=== PATIENT | male | born 2000 | race African-American/Black ===

== ENCOUNTER 2021-03-01 15:02 | Emergency (ER) | payer MEDICAID, SELFPAY ==
[2021-03-01 15:22] VITALS: BP 158/93; PULSE 83; RESP 16; TEMP 36.3; O2SAT 97; BMI 38.2
--- NOTE | 2021-03-01 15:24 | ED.DENTAL ---
HPI - Dental/Oral General Chief complaint: Dental/Oral Stated complaint: Dental pain Time Seen by Provider: 03/01/21 15:24 Source: patient Mode of arrival: ambulatory Limitations: no limitations History of Present Illness HPI Narrative: 20 y/o male presenting with 1 week of bilateral lower rear dental pain. He thinks his wisdom tooth is coming in the left lower side and in the right rear side there is a rotting tooth with tender and inflamed gums. He reports left sided facial swelling as well. No fever, chills, trismus. He is having a hard time sleeping because of the pain. He has not been to a denist in several years. He called emergency dentists and made an appointment for Thursday. He states the pain is too severe to wait until Thursday to be evaluated. MD Complaint: tooth pain Teeth map: 1. tooth with caries, gingival swelling and tenderness 2. 3rd molar starting to protrude from gums, partially exposed Onset (ago): week(s) (1) Duration: constant Severity: severe Severity scale (1-10): 8 Relieving factors: nothing Exacerbating factors: chewing, cold and heat Context: history of dental caries and poor dental care Associated symptoms: gum swelling Treatment prior to arrival: none Related Data Previous Rx's Medication Instructions Recorded hydrocodone-acetaminophen 1 tab PO Q8H PRN #7 tab 03/01/21 ibuprofen 800 mg PO Q8H #20 tab 03/01/21 penicillin V potassium 500 mg PO TID 7 Days #21 tab 03/01/21 Allergies Allergy/AdvReac Type Severity Reaction Status Date / Time clarithromycin [From Biaxin] Allergy Severe HIVES Unverified 05/10/20 17:00 digoxin Allergy Unknown Verified 01/12/17 00:00 Biaxin Allergy Unknown rash Uncoded 12/01/16 00:00 Review of Systems Review of Systems: Constitutional: No Fever, No Chills ENT/Mouth: No sore throat, No Rhinorrhea, No Swallowing Difficulty, +dental pain Eyes: No Eye Pain, No Swelling, No Redness Cardiovascular: No Chest Pain, No SOB Respiratory: No Cough, No Sputum, Gastrointestinal: No Nausea, No Vomiting Neuro: No Dizziness, + Headache Heme/Lymph: No Lymphadenopathy PMFSH Past Medical History Attestation statement: The following information was validated with the patient. Medical History No known health problems Social History Social History Advance Directives: No Advance Directives Information Provided: Yes Physical Exam Vital Signs: Vital Signs: Last Vital Signs Temp 97.4 F 03/01/21 15:22 Pulse 83 03/01/21 15:22 Resp 16 03/01/21 15:22 BP 158/93 H 03/01/21 15:22 Pulse Ox 97 03/01/21 15:22 Body Mass Index 38.2 Const: General: cooperative, healthy appearing, comfortable and no acute distress Orientation/consciousness: patient oriented x3 HENMT: Head: Yes normal to inspection, Yes normocephalic and Yes atraumatic Ears: hearing grossly normal bilaterally General nose exam: Normal external nose present Face and sinus: Yes other (mild left sided facial swelling over left mandible ) Mouth: Normal oral and palatal mucosa present, lip normal and tongue normal Teeth and gingiva: caries and gingiva abnormal edematous, with purulent discharge and tender Teeth image: 1. diseased tooth with associated gingival swelling, central area of fluctuance and small amount of pus draining 2. partially exposed 3rd molar Throat: Yes posterior oropharynx normal, Yes tonsils normal and Yes uvula midline Eyes: General: appearance normal, both eyes and all related structures Neck: Neck: Yes normal visual inspection and Yes no lymphadenopathy Chest: Chest palpation & inspection: normal inspection of the chest Resp: Effort & Inspection: normal respiratory effort and able to speak in complete sentences Skin: General skin exam: no rashes or lesions noted Neuro: General: patient oriented x3 Extrem: General: Yes normal to inspection Psych: Appearance: grossly normal Mental Status: mental status grossly normal Speech and movement: Normal speech and movement present Course Course Course Narrative: 20 y/o male presenting with 1 week of bilateral lower tooth pain. Right lower side is consistent with infection, spontaneously draining without facial swelling. No fevers or trisumus. No tachycardia and he is tolerating PO. He has a dentist appointment early next week. Will start antibiotics, NSAID and PRN [place] for severe pain. He was counseled on management and warning signs to prompt urgent re-evaluation. Patient is stable for discharge. MDM - Dental/Oral Differential Diagnosis Differential diagnosis: Likely gingival abscess, dental caries, toothache, dental abscess, fracture of tooth and aphthous ulcer Critical Care Time Critical Care Time Critical Care Time: No Discharge Plan Discharge Clinical Impression: Toothache, Dental caries Patient Disposition: Home, Self-Care Instructions: Dental Abscess (ED), Toothache (ED) Additional Instructions: Take the prescribed medications as directed Follow up with your dentist as scheduled on Thursday Ice your face several times per day Prescriptions: New penicillin V potassium 500 mg tablet 500 mg PO TID 7 Days Qty: 21 RF: 0 ibuprofen 800 mg tablet 800 mg PO Q8H Qty: 20 RF: 0 hydrocodone-acetaminophen 5-325 mg tablet 1 tab PO Q8H PRN (Reason: pain) Qty: 7 RF: 0 Discharge Date/Time: 03/01/21 15:52
== END 2021-03-01 15:52 | disposition home or self-care (01) ==
PROVIDERS: Emergency Provider Emergency Medicine
DX: K02.9 Dental caries, unspecified (principal)
CPT/HCPCS: 99283

== ENCOUNTER 2021-08-10 23:38 | Emergency (ER) | payer MEDICAID, SELFPAY ==
--- NOTE | ~2021-08-10 | CT_ITS ---
EXAMINATION: CT ABDOMEN AND PELVIS WITH CONTRAST CLINICAL INFORMATION: Right lower quadrant pain. Rule out appendicitis. COMPARISON: None TECHNIQUE: Multidetector volumetric images were obtained from the superior aspect of the liver through the pubic symphysis following administration 85 mL of Omnipaque 350 intravenous contrast. Sagittal and coronal reformatted images were obtained on the technologist's workstation. Oral contrast: No This CT examination was performed using dose optimization techniques as appropriate, variously including the following: *Automated exposure control *Adjustment of mA and/or kV according to patient size (this includes techniques or standardized protocols for targeted exams where dose is matched to indication/reason for exam; i.e. extremities or head) *Use of iterative reconstruction technique DLP: 1022 mGy-cm FINDINGS: LUNG BASES: The visualized lung bases are unremarkable. LIVER, GALLBLADDER, AND BILIARY TREE: The liver is normal in size, shape, and attenuation. No focal hepatic lesion or biliary ductal dilatation is present. The gallbladder is contracted with no evidence of radiopaque gallstones, gallbladder wall thickening, or obvious pericholecystic inflammatory changes. PANCREAS: Unremarkable. SPLEEN: Unremarkable. ADRENAL GLANDS: Unremarkable. KIDNEYS AND URETERS: The kidneys are normal in size, shape, and attenuation. No hydronephrosis, hydroureter, or calculi seen. No perinephric stranding. Right renal simple cysts. No follow-up imaging recommended. BLADDER: Unremarkable. GASTROINTESTINAL TRACT: The small and large bowel are unremarkable. The appendix is unremarkable. ABDOMINAL WALL: No significant hernia is appreciated. LYMPH NODES: Normal. VASCULAR: Unremarkable. PELVIC VISCERA: The prostate and seminal vesicles are unremarkable. OSSEOUS STRUCTURES: No acute or suspicious osseous abnormality. CT/CT abdomen pelvis w con IMPRESSION: No acute findings in the abdomen or pelvis. No inflammatory changes. Normal appendix. Fleischner guidelines were followed.
[2021-08-10 23:44] VITALS: BP 153/86; PULSE 88; RESP 16; TEMP 37.1; O2SAT 98; BMI 40.1
[2021-08-11 00:04] LABS: MANUAL DIFF FLAG NO
[2021-08-11 00:10] LABS: Basophils Percent Auto 0.5 % (0-2); Eosinophils Absolute Auto 0.2 X10*3/uL (0.0-0.4); Eosinophils Percent Auto 2.8 % (0-4); Hematocrit 47.6 % (42.0-52.0); Hemoglobin 15.7 g/dl (14.0-18.0); Imm Gran Abs Auto 0.01 X10*3/uL (0.00-0.03); Imm Gran Pct Auto 0.2 % (0.0-0.4); Lymphocytes Absolute Auto 2.9 X10*3/uL (1.2-4.9); Lymphocytes Percent Auto 47.8 % (20-40); Mean Corpuscular Hemoglobin 31.2 pg (27.0-33.0); Mean Corpuscular Volume 94.4 fL (80.0-98.0); Mean Platelet Volume 10.9 fL (9.4-12.4); Monocytes Absolute Auto 0.4 X10*3/uL (0.1-1.2); Neutrophils Absolute Auto 2.5 x10*3/uL (2.0-8.3); Neutrophils Percent Auto 41.7 % (45-73); Platelet Count 232 X10*3/uL (160-400); Red Blood Count 5.04 X10*6/uL (4.60-5.80)
[2021-08-11 00:11] LABS: Appearance Urine CLEAR; Color Urine YELLOW; Glucose Urine UA NEG (NEG); Leukocyte Esterase Urine NEG (NEG); Nitrite Urine NEG (NEG); Urine Blood NEG (NEG); Urine Ketones NEG (NEG); Urine Protein NEG (NEG-TRACE)
[2021-08-11 01:54] LABS: Alanine Aminotransferase 50 U/L (0-40); Albumin Level 4.5 g/dL (3.5-5.0); Alkaline Phosphatase 86 U/L (39-117); Anion Gap 15 (12-20); Aspartate Amino Transferase 32 U/L (5-37); Bilirubin Total 0.4 mg/dL (0.0-1.0); Blood Urea Nitrogen 10 mg/dL (9-16); Calcium 9.6 mg/dL (8.4-10.2); Carbon Dioxide 23 mmol/L (22-29); Chloride 105 mmol/L (96-108); Creatinine Clr Calc Pharmacy 200.4; Estimated Glomerular Filt Rate > 60; Glucose Random 106 mg/dL (60-115); Lipase 38 U/L (8-78); Potassium 3.6 mmol/L (3.3-5.1); Sodium 139 mmol/L (135-145); Total Protein 7.7 g/dL (6.5-8.0)
[2021-08-11 03:58] VITALS: BP 140/70; PULSE 75; RESP 16; TEMP 36.9; O2SAT 97
--- NOTE | 2021-08-11 04:56 | ED.ABDPAIN ---
HPI - Abdominal Pain General Chief Complaint: Abdominal Pain Stated Complaint: Abd pain Time Seen by Provider: 08/11/21 04:49 Source: patient Mode of arrival: ambulatory Limitations: no limitations History of Present Illness HPI narrative: 20-year-old male who presents emergency department for evaluation of abdominal pain times 2-3 days. Patient states that he has been having a pressure-like sensation in his abdomen. He points to his epigastric area when asked to localize the pain. The pain is constant. The pain is 8/10 at its worst. States the pain got worse prior to coming to the emergency department. He denied nausea, vomiting, fever, chills, frequency, urgency or dysuria. States that he had a normal bowel movement today. States that he took ibuprofen 800 mg without any relief his pain. He states that this is 1st episode of this type of pain. Related Data Previous Rx's Medication Instructions Recorded hydrocodone 5 mg-acetaminophen 325 1 tab PO Q8H PRN #7 tab 03/01/21 mg tablet ibuprofen 800 mg tablet 800 mg PO Q8H #20 tab 03/01/21 penicillin V potassium 500 mg 500 mg PO TID 7 Days #21 tab 03/01/21 tablet Allergies Allergy/AdvReac Type Severity Reaction Status Date / Time clarithromycin [From Biaxin] Allergy Severe HIVES Verified 08/11/21 05:18 digoxin Allergy Unknown Unknown Verified 08/11/21 05:18 Biaxin Allergy Unknown rash Uncoded 08/11/21 05:18 Review of Systems Review of Systems Yes all other systems are reviewed and are negative Physical Exam Vital Signs: Vital Signs: Last Vital Signs Temp 98.4 F 08/11/21 03:58 Pulse 75 08/11/21 03:58 Resp 16 08/11/21 03:58 BP 140/70 H 08/11/21 03:58 Pulse Ox 97 08/11/21 03:58 BMI result Body Mass Index 40.1 Const: General: cooperative and no acute distress Orientation/consciousness: oriented to person and oriented to place Limitations: no limitations HENMT: Head: Yes normal to inspection, Yes normocephalic and Yes atraumatic Ears: external ears normal General nose exam: Normal external nose present Face and sinus: Yes normal facial exam Mouth: Normal oral and palatal mucosa present Throat: Yes posterior oropharynx normal Eyes: General: appearance normal, both eyes and all related structures Pupils: Equal, round and reactive pupils present Neck: Neck: Yes normal visual inspection, Yes no lymphadenopathy, Yes trachea midline and Yes supple Chest: Chest palpation & inspection: normal inspection of the chest and normal palpation of entire chest wall Resp: Effort & Inspection: normal respiratory effort and able to speak in complete sentences Auscultation: clear to auscultation bilaterally Cardio: Rate: regular rate Rhythm: regular rhythm Heart sounds: S1 normal heart sound present, S2 normal heart sound present and no murmurs GI: Inspection: Yes obesity Palpation (GI): Soft to palpation, Tenderness to palpation present (GI) in the RLQ (Moderate) and no guarding Auscultation: normal bowel sounds : General: Yes no CVA tenderness Back/Spine/Pelvis: Back: no CVA tenderness Skin: General skin exam: no rashes or lesions noted Neuro: General: oriented to person and oriented to place Cranial nerves: Yes CN's II-XII intact bilaterally and Yes Equal, round and reactive pupils present Cognition (Neuro): normal cognition Motor exam (neuro): 5/5 motor strength present throughout Extrem: General: Yes normal to inspection Psych: Appearance: grossly normal Speech and movement: Normal speech and movement present Affect: normal affect Attitude: cooperative Thought process: Normal thought process present Thought content: Normal thought content present Course Course Course Narrative: 20-year-old male who presents emergency department for evaluation of abdominal pain for 2-3 days. The patient described a pressure-like sensation in his epigastric area. Patient's vital signs were unremarkable except for an elevated blood pressure of 153/86. The patient is still examination revealed moderate right lower quadrant tenderness. I am concerned the patient may have appendicitis. Patient had a CBC, CMP urinalysis which were unremarkable. Lipase was not elevated. I did order a CT scan of the abdomen pelvis with IV contrast to evaluate him for possible appendicitis. He was also ordered to get Toradol 15 mg IV, Zofran 4 mg IV and normal saline IV x1 L. 0646: The CT scan of the patient's abdomen pelvis with IV contrast did not reveal a clear etiology for the patient's pain. The patient's appendix was visualized by the radiologist and there were no inflammatory changes noted. The patient did feel better after the above treatment. The patient's presentation is most likely consistent with gastritis however I do not have a clear cause for his right lower quadrant pain I did discuss this with him. The patient will be started on omeprazole 20 mg once a day for 1 month. He is advised to take Tylenol and ibuprofen for his pain. I told if his pain got worse over the next 24 hours and he should return to the emergency department for re-evaluation. MDM - Abdominal Pain Lab Data Result diagrams: 08/10/21 23:51 08/11/21 01:19 Labs: Lab Results 08/10/21 08/10/21 08/11/21 Range/Units 23:51 23:51 01:19 WBC 6.0 (4.8-10.8) X10*3/uL RBC 5.04 (4.60-5.80) X10*6/uL Hgb 15.7 (14.0-18.0) g/dl Hct 47.6 (42.0-52.0) % MCV 94.4 (80.0-98.0) fL MCH 31.2 (27.0-33.0) pg MCHC 33.0 (31.0-36.0) g/dl RDW 12.0 (11.0-16.0) % Plt Count 232 (160-400) X10*3/uL MPV 10.9 (9.4-12.4) fL Immature Gran % (Auto) 0.2 (0.0-0.4) % Neut % (Auto) 41.7 L (45-73) % Lymph % (Auto) 47.8 H (20-40) % [place] % (Auto) 7.0 (2-11) % Eos % (Auto) 2.8 (0-4) % Baso % (Auto) 0.5 (0-2) % Lymph # (Auto) 2.9 (1.2-4.9) X10*3/uL [place] # (Auto) 0.4 (0.1-1.2) X10*3/uL Eos # (Auto) 0.2 (0.0-0.4) X10*3/uL Baso # (Auto) 0.0 (0.0-0.2) X10*3/uL Abs Immat Gran (auto) 0.01 (0.00-0.03) X10*3/uL Absolute Neuts (auto) 2.5 (2.0-8.3) x10*3/uL Absolute Nucleated RBC 0.000 (0.0-0.012) X10*3/uL Nucleated RBC % (auto) 0.0 (0.0-0.2) /100WBC Sodium 139 (135-145) mmol/L Potassium 3.6 (3.3-5.1) mmol/L Chloride 105 (96-108) mmol/L Carbon Dioxide 23 (22-29) mmol/L Anion Gap 15 (12-20) BUN 10 (9-16) mg/dL Creatinine 0.78 (0.5-1.4) mg/dL Estim Creat Clear Calc 200.4 Estimated GFR > 60 Random Glucose 106 (60-115) mg/dL Calcium 9.6 (8.4-10.2) mg/dL Total Bilirubin 0.4 (0.0-1.0) mg/dL AST 32 (5-37) U/L ALT 50 H (0-40) U/L Alkaline Phosphatase 86 (39-117) U/L Total Protein 7.7 (6.5-8.0) g/dL Albumin 4.5 (3.5-5.0) g/dL Lipase 38 (8-78) U/L Urine Color YELLOW Urine Appearance CLEAR Urine pH 6.0 (5.0-8.0) Ur Specific [place] 1.020 (1.005-1.025) Urine Protein NEG (NEG-TRACE) MG/DL Urine Glucose (UA) NEG (NEG) MG/DL Urine Ketones NEG (NEG) MG/DL Urine Blood NEG (NEG) Urine Nitrite NEG (NEG) Ur Leukocyte Esterase NEG (NEG) Discharge Plan Discharge Clinical Impression: Abdominal pain, Gastritis Patient Disposition: Home, Self-Care Instructions: Gastritis (ED) Additional Instructions: Your laboratory evaluation was normal which is reassuring. The CT scan of your abdomen pelvis with IV contrast did not reveal a clear cause for the pain in the right lower quadrant of your abdomen. The radiologist was able to see your appendix and your appendix appeared normal which is reassuring. Sometimes however early on in appendicitis all your test can be normal and you still may have appendicitis. Therefore if you are not better in 24 hours she should return to the emergency department so that we can re-evaluate you for possible appendicitis. The pain in the middle of your stomach is most likely caused by inflammation of your stomach (gastritis). Take Prilosec (omeprazole) 20 mg once a day for 1 month. This shots of the acid production your stomach and much stomach heal. Take ibuprofen 200 mg pills, 3 pills every 6 hours as needed for pain. Take Tylenol (acetaminophen) 500 mg pills, 2 pills every 4 to 6 hours as needed for pain. Follow-up with your doctor in 2 days. Please return to the emergency department if your symptoms get worse or if you develop any symptoms that are concerning to you. Prescriptions: No Action penicillin V potassium 500 mg tablet 500 mg PO TID 7 Days Qty: 21 RF: 0 ibuprofen 800 mg tablet 800 mg PO Q8H Qty: 20 RF: 0 hydrocodone-acetaminophen 5-325 mg tablet 1 tab PO Q8H PRN (Reason: pain) Qty: 7 RF: 0 PMFSH Past Medical History PMFSH Narrative: Past medical history: None. Past surgical history: None. Social history denies tobacco use. He occasionally drinks alcohol. He denies drug use. Medical History No known health problems Social History Social History Advance Directives: No
[2021-08-11] MEDS: iohexoL 350 MG/ML 100 ML INFUS..BTL IV (05:17)
[2021-08-11] MEDS: ondansetron HCL 4 MG/2 ML VIAL IVPUSH (05:18)
[2021-08-11] MEDS: Ketorolac Tromethamine 30 MG/ML VIAL 15 MG IVPUSH (05:18)
[2021-08-11] MEDS: 0.9 % Sodium Chloride 1,000 ML 999 ML IV (05:19)
--- NOTE | 2021-08-11 05:23 | PC.NURSE ---
complaining of left lower quadrant pain, ambulated to CT, given meds per MAR, waiting for results of CT scan will continue to monitor
[2021-08-11 07:32] VITALS: BP 146/99; PULSE 68; RESP 16; O2SAT 99
== END 2021-08-11 07:33 | disposition home or self-care (01) ==
PROVIDERS: Emergency Provider Emergency Medicine Emergency Medical Services
DX: K29.70 Gastritis, unspecified, without bleeding (principal); R10.31 Right lower quadrant pain
CPT/HCPCS: 36415; 74177; 80053; 81003; 83690; 85025; 96361; 96374; 96375; 99284; J1885; J2405; Q9967

== ENCOUNTER 2021-08-21 08:56 | Outpatient (REF) | payer MEDICAID, SELFPAY | END 2021-08-21 08:57 | disposition home or self-care (01) | LOC: HO.LAB 08:56 | PROVIDERS: Visit Provider Internal Medicine | DX: Z20.822 Contact with and (suspected) exposure to COVID-19 (principal) | CPT/HCPCS: C9803; U0003; U0005 ==

== ENCOUNTER 2023-07-20 09:48 | Emergency (ER) | payer OTHER, SELFPAY ==
[2023-07-20 10:20] VITALS: BP 153/68; PULSE 105; RESP 22; TEMP 37.2; O2SAT 97; BMI 50.5
[2023-07-20 11:12] LABS: IDNOW Serial# 9DB6401D; Influenza A Negative (Negative); Influenza B2 Negative (Negative)
[2023-07-20 11:12] LABS: COVID-19 Test Negative (Negative); IDNOW Serial# 08D9AD1C; IDNOW Serial# BCCEAD1C; Strep A Nucleic Acid Negative (Negative)
--- NOTE | 2023-07-20 11:50 | ED.GENADULT ---
HPI - General Adult General Chief complaint: Upper Respiratory Symptoms Stated complaint: Fever/Sore throat Time Seen by Provider: 07/20/23 10:44 Source: patient Mode of arrival: ambulatory Limitations: no limitations History of Present Illness HPI narrative: 22-year-old male history of obesity presenting to the emergency department for evaluations of fatigue, malaise, myalgias, sore throat, dry cough, redness to right eye, vomitingalthough this has been going on for the past 5 days, not improving. Multiple recent sick contact w/ similar sx. Reports he just feels overall unwell. Denies chest pain, shortness of breath, diarrhea, abdominal pain, headache, vision changes, dizziness or weakness. Related Data Previous Rx's Medication Instructions Recorded hydrocodone 5 mg-acetaminophen 325 1 tab PO Q8H PRN pain #7 tabs 03/01/21 mg tablet ibuprofen 800 mg tablet 800 mg PO Q8H #20 tabs 03/01/21 penicillin V potassium 500 mg 500 mg PO TID 7 days #21 tabs 03/01/21 tablet sulfacetamide sodium 10 % eye drops 2 drp ophthalmic (eye) Q4H 7 days 07/20/23 #15 mL Allergies Allergy/AdvReac Type Severity Reaction Status Date / Time clarithromycin [From Biaxin] Allergy Severe HIVES Verified 08/11/21 05:18 digoxin Allergy Unknown Unknown Verified 08/11/21 05:18 Biaxin Allergy Unknown rash Uncoded 08/11/21 05:18 Review of Systems Review of Systems: Constitutional : No Weight loss, No Fever, No Chills, No Fatigue, No Malaise ENT/Mouth : + sore throat, No Rhinorrhea Eyes: No Eye Pain, No Swelling, + Redness Cardiovascular : No Chest Pain, No SOB, No Dyspnea on Exertion, No Orthopnea, No Edema, No Palpitations Respiratory : + Cough, No Sputum, No Wheezing Gastrointestinal : No Nausea, + Vomiting, No Diarrhea, No Constipation, No abdominal Pain, No Hematochezia, No Melena Genitourinary : No Dysuria, No Urinary Frequency, No Hematuria, Musculoskeletal : No joint pain, No Myalgias, No Joint Swelling Skin : No Skin Lesions, No rash Neuro : No Weakness, No Numbness, No Dizziness, No Headache Psych : No Anxiety/Panic, No Depression All other systems reviewed and are negative Yes all other systems are reviewed and are negative PMFSH Past Medical History Attestation statement: The following information was validated with the patient. Source: old records reviewed and nursing notes reviewed Medical History No known health problems Social History Advance Directives: No Physical Exam ED Vital Signs: Vital Signs - 24 hr 07/20/23 10:20 Temperature 98.9 F Pulse Rate 105 H Respiratory Rate 22 H Blood Pressure 153/68 H Pulse Oximetry 97 Oxygen Delivery Method Room Air BMI result Body Mass Index 50.5 Patient slightly tachycardic likely secondary to viral illness Appearance: Alert.? Oriented X3.? No acute distress.? Head: Normocephalic, atraumatic, no step-offs or deformities Eyes: Pupils equal, round and reactive to light.? Extraocular movements intact pain-free + patient's eyes b/l R>L with conjunctival injection. No orbital cellulitis noted ENT: Pharynx normal.? Uvula midline. No exudate or abscesses noted. Speaking in full sentences controlling secretions well Neck: Normal inspection.? Neck supple.? CVS: Normal heart rate and rhythm.? Pulses normal.? Respiratory: No respiratory distress.? Breath sounds normal.? Abdomen: Soft and nontender.? Skin: Skin warm and dry.? Normal skin color.? Normal skin turgor.? Extremities: No lower extremity edema.? No calf ttp. 5/5 strength to bilateral upper and lower extremities Neuro: Oriented X 3.? No motor deficit.? No sensory deficit. CN 2-12 intact Course Reevaluation(s) Reevaluation #1: Patient negative for strep, flu and COVID. This is likely viral illness with conjunctivitis. Will discharge home with Bleph-10 as patient has a erythromycin allergy. Educated patient on diagnosis and treatment plan, answered all question, patient verbalizes understanding. At this time patient will be discharged home, advised to return with new or worsening symptoms. Educated on worrisome signs and symptoms and when to return. At this time I feel comfortable discharge home. Time: 11:53 Medical Decision Making Medical Decision Making [facility] Narrative: 1150 22-year-old male presents with cough, sore throat, fatigue, malaise, vomiting and red eye x5 days Physical exam Pupils equal, round and reactive to light.? Extraocular movements intact pain-free + patient's eyes b/l R>L with conjunctival injection. No orbital cellulitis noted ENT: Pharynx normal.? Uvula midline. No exudate or abscesses noted. Speaking in full sentences controlling secretions well This is likely viral illness with subsequent conjunctivitis. Unlikely pulmonary embolism, pneumonia, bacterial pharyngitis, peritonsillar retropharyngeal abscess, epiglottitis, threat to airway, pneumothorax. Right eye likely conjunctivitis unlikely wet macular degeneration, acute closed angle glaucoma. Vomiting likely secondary to virus, no abdominal tenderness, unlikely acute abdomen, appendicitis, diverticulitis, cholecystitis, pancreatitis Plan viral testing Differential Diagnosis Differential Diagnoses: The differential diagnosis associated with the presentation includes This is likely viral illness with subsequent conjunctivitis. Unlikely pulmonary embolism, pneumonia, bacterial pharyngitis, peritonsillar retropharyngeal abscess, epiglottitis, threat to airway, pneumothorax. Right eye likely conjunctivitis unlikely wet macular degeneration, acute closed angle glaucoma, Vomiting likely secondary to virus, no abdominal tenderness, unlikely acute abdomen, appendicitis, diverticulitis, cholecystitis, pancreatitis Admission/Observation Consideration of admission/observation: Escalation of care including admission/observation considered Unlikely Lab Data MDM Lab Attestation statement: I reviewed the patient's lab results. Labs: Lab Results 07/20/23 07/20/23 Range/Units 10:39 10:40 COVID-19 (JUAN) Negative (Negative) COVID-19 Clin Com See Note Influenza Type A (MICHAEL) Negative (Negative) Influenza Type B (MICHAEL) Negative (Negative) Influenza A & B Note See Note S. pyogenes GrpA MICHAEL Negative (Negative) Tests considered The following testing was considered but not selected: X-ray considered however lungs clear, not hypoxic, unlikely pulmonary embolism, pneumonia. Critical Care Time Critical Care Time Critical Care Time: No Discharge Plan Discharge Clinical Impression: Viral infection, Conjunctivitis Patient Disposition: Home, Self-Care Instructions: Viral Syndrome (ED), Conjunctivitis (ED) Additional Instructions: Take your medications as prescribed. If you were prescribed antibiotics today, it is important that you take your medication to their entirety, do not skip any doses, do not finish them early. Follow-up with your primary care provider this week. Return to the emergency department with new or worsening symptoms. Such as fevers, chills, chest pain, shortness of breath, nausea, vomiting, dizziness, headache, vision changes, lethargy In case of emergency call 911 Use salt water gargles for sore throat Prescriptions: New sulfacetamide sodium 10 % drops 2 drp ophthalmic (eye) Q4H 7 Days Qty: 15 0RF No Action penicillin V potassium 500 mg tablet 500 mg PO TID 7 Days Qty: 21 0RF ibuprofen 800 mg tablet 800 mg PO Q8H Qty: 20 0RF hydrocodone-acetaminophen 5-325 mg tablet 1 tab PO Q8H PRN (Reason: pain) Qty: 7 0RF Rx Instructions: partial fill ok Referrals: Physician,None [Primary Care Provider] - 2 days Stand Alone Forms: Work/School Release
== END 2023-07-20 12:09 | disposition home or self-care (01) ==
PROVIDERS: Emergency Provider Emergency Medicine
DX: B34.9 Viral infection, unspecified (principal); H10.9 Unspecified conjunctivitis; Z11.52 Encounter for screening for COVID-19
CPT/HCPCS: 87502; 87635; 87651; 99282; 99283

== ENCOUNTER 2024-01-21 07:38 | Emergency (ER) | payer SELFPAY ==
[2024-01-21 07:44] VITALS: BP 168/110; PULSE 110; RESP 20; TEMP 36.2; O2SAT 97; BMI 53.8
[2024-01-21 08:09] LABS: IDNOW Serial# 58CA691E; Strep A Nucleic Acid Negative (Negative)
[2024-01-21] MEDS: methylPREDNISolone Sod Succ 125 MG/2 ML VIAL IVPUSH (08:14)
--- NOTE | 2024-01-21 08:16 | ED_ITS ---
HPI - SOB/Dyspnea General Chief Complaint: Dyspnea Stated Complaint: diff breathing Time Seen by Provider: 01/21/24 07:52 Source: patient Mode of arrival: ambulatory Limitations: no limitations History of Present Illness ED Provider: ILANA HPI Narrative: 23 yo male with no sig PMH notes last night started to feel swelling in the throat no fevers. He denies known exposures or prior swelling. Woke up choking on ball in his throat. He states he feels like there is a ball in the back of his throat. He has never had this before. MD elicited complaint: shortness of breath Pertinent past history: asthma Onset (ago): day(s) (in the middle of the night) Timing: constant Severity: moderate Exacerbating factors: lying flat and coughing Relieving factors: nothing Associated symptoms: other (feels ball in the throat) Treatment prior to arrival: none Related Data Previous Rx's ?Medication ?Instructions ?Recorded hydrocodone 5 mg-acetaminophen 325 1 tab PO Q8H PRN pain #7 tabs 03/01/21 mg tablet ibuprofen 800 mg tablet 800 mg PO Q8H #20 tabs 03/01/21 penicillin V potassium 500 mg 500 mg PO TID 7 days #21 tabs 03/01/21 tablet sulfacetamide sodium 10 % eye drops 2 drp ophthalmic (eye) Q4H 7 days 07/20/23 #15 mL cetirizine 10 mg tablet 10 mg PO DAILY #10 tabs 01/21/24 epinephrine 0.3 mg/0.3 mL 0.3 mg (0.3 mL) IM Q10M PRN 01/21/24 injection, auto-injector anaphylaxis #2 ea prednisone 20 mg tablet 40 mg (2 x 20 mg) PO DAILY 5 days 01/21/24 #10 tabs Allergies Allergy/AdvReac Type Severity Reaction Status Date / Time clarithromycin [From Biaxin] Allergy Severe HIVES Verified 01/21/24 07:47 digoxin Allergy Unknown Unknown Verified 01/21/24 07:47 Biaxin Allergy Unknown rash Uncoded 01/21/24 07:47 Review of Systems Review of Systems: Constitutional : No Fever, No Chills ENT/Mouth : No sore throat, No Rhinorrhea, No Swallowing Difficulty Eyes: No Eye Pain, No Swelling, No Redness Cardiovascular : No Chest Pain, positive SOB, No Orthopnea, no Edema Respiratory : No Cough, No Sputum, No Wheezing, positive dyspnea Gastrointestinal : No Nausea, No Vomiting, No Diarrhea, No abdominal Pain, No Hematochezia, No Melena Genitourinary : No Dysuria, No Urinary Frequency, No Hematuria Musculoskeletal : No joint pain, No Myalgias Skin : No Skin Lesions, No rash Neuro : No Weakness, No Numbness, No Dizziness, No Headache Psych : No Anxiety/Panic, No Depression All other systems reviewed and are negative [facility] Past Medical History Attestation statement: The following information was validated with the patient. Source: old records reviewed Medical History No known health problems Social History Social History (Updated 01/21/24 @ 08:24 by Rosa Calle DO) Alcohol intake: current Alcohol intake frequency: holidays/special occasions only Patient Tobacco Use Status: Current everyday Tobacco user Tobacco use type: Smokeless Tobacco Smoked in Last 30 Days: Yes Use of substances other than those prescribed or required for medical reasons: No Advance Directives: No Do you have a plan to hurt others: No Plan Physical Exam Vital Signs: Vital Signs: Last Vital Signs Temp 97.2 F 01/21/24 07:44 Pulse 92 01/21/24 09:14 Resp 20 01/21/24 09:13 BP 142/82 H 01/21/24 09:14 Pulse Ox 95 01/21/24 09:13 O2 Del Method Room Air 01/21/24 09:13 BMI result Body Mass Index 53.8 Appearance: Alert. Oriented X3. No acute distress. Eyes: Pupils equal, round and reactive to light. ENT: Pharynx uvula only has swelling clear otherwise no erythema no exudates moderate swelling Neck: Normal inspection. Neck supple. no stridor CVS: Normal heart rate and rhythm. Pulses normal. Respiratory: No respiratory distress. Breath sounds normal. Abdomen: Soft and nontender. Skin: Skin warm and dry. Normal skin color. Normal skin turgor. Extremities: No lower extremity edema. No calf ttp Neuro: Oriented X 3. No motor deficit. No sensory deficit. Course Course Course Narrative: no sig change still swollen will dose with IM epi Reevaluation(s) Reevaluation #1: symptoms gone with epi will observe x 2 hours post epi Medications Administered Discontinued Medications Generic Name Dose Route Start Last Admin Trade Name Freq PRN Reason Stop Dose Admin Diphenhydramine HCl 25 mg 01/21/24 08:02 01/21/24 08:17 Diphenhydramine Hcl 50 Mg/Ml Vial IVPUSH 01/21/24 08:03 25 mg ONCE ONE Administration Epinephrine 0.3 mg 01/21/24 09:07 01/21/24 09:14 Epinephrine 1 Mg/Ml Vial IM 01/21/24 09:08 0.3 mg STAT STA Administration Famotidine 20 mg 01/21/24 08:02 01/21/24 08:17 Famotidine/Pf 20 Mg/2 Ml Vial IVPUSH 01/21/24 08:03 20 mg ONCE ONE Administration Methylprednisolone Sodium Succinate 125 mg 01/21/24 08:01 01/21/24 08:14 Methylprednisolone Sod Succ 125 Mg/2 Ml Vial IVPUSH 01/21/24 08:02 125 mg ONCE ONE Administration Medical Decision Making Medical Decision Making MDM Narrative: 23 yo male with hx of asthma here with feeling ball in the throat and dyspnea on exam he has no stridor no drooling normal voice at this time uvula is moderately swollen but not erythematous will obtain strep swab and start on steroids, pepcid, benadryl - he likely has uvulitis or uvula hydrops. No airway occlusion no resp difficulties on exam. If no improvement will consider epi given the swelling and concern for allergy Differential Diagnosis Differential Diagnoses: The differential diagnosis associated with the presentation includes uvulitis or uvula hydrops Admission/Observation Consideration of admission/observation: Escalation of care including admission/observation considered symptoms resolved 2 hours after epi, feels much better , stable for DC with epi pen and prednisone/zyrtec Rx unsure if was applesauce or something he ate yesterday does not appear infectious Lab Data MDM Lab Attestation statement: I reviewed the patient's lab results. Labs: Lab Results 01/21/24 Range/Units 07:56 Influenza Type A (PCR) NEGATIVE (Negative) Influenza Type B (PCR) NEGATIVE (Negative) RSV RNA Qual (PCR) NEGATIVE (Negative) SARS-CoV-2 RNA (RT-PCR) NEGATIVE (Negative) S. pyogenes GrpA MICHAEL Negative (Negative) External Record Review External record reviewed: Inpatient record Prescription Management I considered prescription management with: Other Critical Care Time Critical Care Time Critical Care Time: Yes Total Critical Care Time: 40 Attestation: airway observation, IM epi for airway swelling, repeat assessment I attest to this time spent taking care of the patient Discharge Plan Discharge Clinical Impression: Allergic reaction Qualifiers: Encounter type: initial encounter Qualified Code(s): T78.40XA - Allergy, unspecified, initial encounter Patient Disposition: Home, Self-Care Instructions: General Allergic Reaction (ED) Additional Instructions: avoid any triggers or exposures take medications carry epi pen with you administer if symptoms return throat swelling or closing Prescriptions: New prednisone 20 mg tablet 40 mg PO DAILY 5 Days Qty: 10 0RF epinephrine 0.3 mg/0.3 mL auto-injector 0.3 mg IM Q10M PRN (Reason: anaphylaxis) Qty: 2 0RF Rx Instructions: for 2 doses cetirizine 10 mg tablet 10 mg PO DAILY Qty: 10 0RF No Action penicillin V potassium 500 mg tablet 500 mg PO TID 7 Days Qty: 21 0RF ibuprofen 800 mg tablet 800 mg PO Q8H Qty: 20 0RF hydrocodone-acetaminophen 5-325 mg tablet 1 tab PO Q8H PRN (Reason: pain) Qty: 7 0RF Rx Instructions: partial fill ok sulfacetamide sodium 10 % drops 2 drp ophthalmic (eye) Q4H 7 Days Qty: 15 0RF Stand Alone Forms: Work/School Release Print Language: Italian
[2024-01-21] MEDS: diphenhydrAMINE HCL 50 MG/ML VIAL 25 MG IVPUSH (08:17)
[2024-01-21] MEDS: Famotidine/PF 20 MG/2 ML VIAL IVPUSH (08:17)
[2024-01-21 08:18] VITALS: PULSE 96; RESP 18; O2SAT 99
[2024-01-21 08:37] LABS: Influenza A PCR NEGATIVE (Negative); Influenza B PCR NEGATIVE (Negative); Resp Syncy Virus RNA Qual PCR NEGATIVE (Negative); SARS COV2 PCR INHOUSE NEGATIVE (Negative)
[2024-01-21 09:13] VITALS: BP 142/82; PULSE 82; RESP 20; O2SAT 95
[2024-01-21 09:14] VITALS: BP 142/82; PULSE 92
[2024-01-21] MEDS: EPINEPHrine 1 MG/ML VIAL 0.3 MG IM (09:14)
[2024-01-21 11:41] VITALS: BP 133/71; PULSE 106; RESP 18; TEMP 36.6; O2SAT 96
--- NOTE | 2024-01-21 11:44 | PC.NURSE ---
nad, skin wpd, st on monitor, no complaints
== END 2024-01-21 11:44 | disposition home or self-care (01) ==
PROVIDERS: Emergency Provider Emergency Medicine
DX: T78.40XA Allergy, unspecified, initial encounter (principal); X58.XXXA Exposure to other specified factors, initial encounter; J45.909 Unspecified asthma, uncomplicated; Z03.818 Encounter for observation for suspected exposure to other biological agents ruled out
CPT/HCPCS: 0241U; 87651; 96372; 96374; 96375; 99284; J0171; J1200; J2919

== ENCOUNTER 2025-06-05 15:48 | Outpatient (REF) | payer MEDICAID, SELFPAY ==
--- OUTSIDE RECORDS SUMMARY | 2025-06-05 14:45 | XMS_ITS | Encounter Summary ---
Author Organization [facility] Address [address] [place] [address] 7 [place] [address] Care Team Providers Care Commercial Credit Lead Name Role Phone Leidy Acuña NP Primary Care Provider Reason for Referral * Consultation (Routine) - Pending Review Specialty Diagnoses / Procedures Referred By Tita shetty Referred To Contact Sleep Medicine Diagnoses Morbid obesity (CMS/HCC) (HCC) Apnea Leidy Acuña NP [address] [place] [address] Phone: tel: fax: Referral ID Status Reason Start Date Expiration Date Visits Requested Visits Authorized [id number] Pending Review Specialty Services Required 06/05/2026 1 1 Reason for Visit * Reason Comments New patient Encounter Details Date Type Department Care Team (Late st Contact Info) Description 06/05/2025 2:45 PM EDT Office Visit [facility] [address] [place] [phone] Leidy Acuña NP [address] [place] [address] Exposure to communicable disease (Primary Dx); Other fatigue; Morbid obesity (CMS/HCC) (HCC); Apnea; Primary hypertension; Mild intermittent asthma, unspecified whether complicated Social History Tobacco Use Types Packs/Day Years Used Date Smoking Tobacco: Never Assessed Housing Stability Answer Date Recorded What is your housing situation today? I have arian torres 05/26/[address] you li ve. Do you have problems with any of the following? None of the above 05/26/2025 Food Insecurity Answer Date Recorded Within the past 12 months, y ou worried that your food would run out before you got money to buy more: Never True 05/26/2025 Within the past 12 months,th e food you bought just didn't last and you didn't have enough money to get more: Never True 10/2024 Transportation Answer Date Recorded In the past 12 months, has l ack of transportation kept you from medical appts, meetings, work or from getting things needed for daily living? No 05/26/2025 Utilities Answer Date Recorded In the past 12 months, has t he [employer], gas, oil or water company threatened to shut off services in your home? No 05/26/2025 Internet Access Answer Date Recorded Internet Access Q1 Yes 05/26/2025 Internet Access Q2 Not on file 05/26/2025 Sex and Gender Information Value Date Recorded Sex Assigned at Male 06/02/2025 1:29 PM EDT Legal Sex Male 2:08 AM EDT Gender Identity Male 05/26/2025 10:09 AM EDT Sexual Orientation Straight 06/02/2025 1: 29 PM EDT documented as of this encounter Last Filed Vital Signs Vital Sign Reading Time Taken Comments Blood Pressure 180/100 06/05/2025 3:07 PM EDT nurse collected BP Pulse 105 06/05/2025 3:07 PM EDT Temperature 36.9 C (98.5 F) 06/05/2025 3:07 PM EDT Respiratory Rate 23 06/05/2025 3:07 PM EDT Oxygen Saturation 97% 06/05/2025 3:0 7 PM EDT Inhaled Oxygen Concentration - - Weight 173 kg (381 lb 3.2 oz) 06/05/2025 3:07 PM EDT Height 177.8 cm (5' 10 ) 06/05/2025 3:0 7 PM EDT Body Mass Index 54.7 06/05/2025 3:07 PM EDT documented in this encounter Miscellaneous Notes * Assessment & Plan Note - Leidy Acuña NP - 06/05/2025 2:45 PM EDTAssociated Problem(s): Exposure to communicable disease Orders: HIV-1/2 Antigen and Antibodies, Fourth Generation, with Reflexes; Future Hepatitis C Antibody with Reflex to HCV, RNA, Quantitative, Real-Time PCR; Future Chlamydia/N. Gonorrhoeae, PCR, Urine * Assessment & Plan Note - Leidy Acuña NP - 06/05/2025 2:45 PM EDTAssociated Problem(s): Other fatigue Orders: TSH; Future * Assessment & Plan Note - Leidy Acuña NP - 06/05/2025 2:45 PM EDTAssociated Problem(s): Morbid obesity (CMS/HCC) (HCC) Orders: Comprehensive Metabolic Panel; Future Hemoglobin A1c; Future CBC auto differential; Future Referral to Sleep Medicine; Future TSH; Future * Assessment & Plan Note - Leidy Acuña NP - 06/05/2025 2:45 PM EDTAssociated Problem(s): Apnea Orders: Referral to Sleep Medicine; Future * Assessment & Plan Note - Leidy Acuña NP - 06/05/2025 2:45 PM EDTAssociated Problem(s): Primary hypertension * Assessment & Plan Note - Leidy Acuña NP - 06/05/2025 2:45 PM EDTAssociated Problem(s): Asthma documented in this encounter Plan of Treatment Upcoming Encounters Date Type Department Care Team (Late st Contact Info) Description 06/20/2025 11:30 AM EDT Clinical Support [facility] [address] [place] [phone] 07/28/2025 11:15 AM EST Office Visit [facility] [address] [place] [phone] Leidy Acuña NP [address] [place] [phone] Scheduled Orders Name Type Priority Associated Diagnoses Orde r Schedule HIV-1/2 Antigen and Antibodies, Fourth Generation, with Reflexes Lab Routine Exposure to communicable disease Expected: 06/05/2025 (Approximate), Expires: 06/05/2026 Comprehensive Metabolic Panel Lab Routine Morbid obesity ([facility]/HCC) (HCC) Expected: 06/05/2025 (Approximate), Expires: 06/05/2026 Hemoglobin A1c Lab Routine Morbid obesity ([facility]/HCC) (HCC) Expected: 06/05/2025 (Approximate), Expires: 06/05/2026 Hepatitis C Antibody with Reflex to HCV, RNA, Quantitative, Real-Time PCR Lab Routine Exposure to communicable disease Expected: 06/05/2025, Expires: 06/05/2026 CBC auto differential Lab Routine Morbid obesity (CMS/HCC) (HCC) Expected: 06/05/2025 (Approximate), Expires: 06/05/2026 TSH Lab Routine Other fatigue Morbid obesity ([facility]/HCC) (HCC) Expected: 06/05/2025 (Approximate), Expires: 06/05/2026 Chlamydia/N. Gonorrhoeae, PCR, Urine Lab Routine Exposure to communicable disease Ordered: 06/05/2025 Scheduled Referrals Name Type Priority Associated Diagnoses Orde r Schedule Referral to Sleep Medicine Outpatient Referral Routine Morbid obesity ([facility]/HCC) (HCC) Apnea Expected: 06/05/2025 (Approximate), Expires: 06/05/2026 documented as of this encounter Visit Diagnoses Diagnosis Exposure to communicable disease- Primary Contact with or exposure to unspecified communicable disease Other fatigue Morbid obesity (CMS/HCC) (HCC) Morbid obesity Apnea Primary hypertension Unspecified essential hypertension Mild intermittent asthma, unspecified whether complicated documented in this encounter Care Teams Commercial Credit Lead Relationship Specialty Start Date End Date Leidy Acuña NP [address] [place] [address] PCP - General Family Medicine 06/05/25 documented as of this encounter
--- OUTSIDE RECORDS SUMMARY | 2025-06-05 15:52 | XMS_ITS | Encounter Summary ---
Author Organization [facility] Address [address] [facility] [address]t [place] [address] Care Team Providers Care Expander Name Role Phone Leidy Acuña MARK Primary Care Provider [phone] Encounter Details Date Type Department Care Team (Latest Contact Info) Description 06/05/2025 Travel Social History Tobacco Use Types Packs/Day Years Used Date Smoking Tobacco: Never Assessed Housing Stability Answer Date Recorded What is your housing situation today? I have arianfredo torres 05/26/[address] you [...] the past 12 months, has t he electric, gas, oil or water company threatened to [...] PM EDT documented as of this encounter Plan of Treatment Upcoming Encounters Date Type Department Care Team (Late st Contact Info) Description 06/20/2025 11:30 AM EDT Clinical Support [address] [phone] 07/28/2025 11:15 AM EST Office Visit [address] [phone] Leidy Acuña NP [address] [place] [address] documented as of this encounter Visit Diagnoses Not on filedocumented in this encounter Care Teams Expander Relationship Specialty Start Date End Date Leidy Acuña NP [address] [place] [phone] PCP - General Family Medicine 06/05/25 documented as of this encounter
--- OUTSIDE RECORDS SUMMARY | 2025-06-05 15:52 | XMS_ITS | Clinical Summary ---
Author Organization [employer] Address [address] [facility] [address] [place] [address] Care Team Providers Care Homicide Detective Name Role Phone Leidy Acuña MARK Primary Care Provider [phone] Allergies No known active allergies Medications olmesartan (Benicar) 20 MG tablet Take 1 tablet (20 mg) by mouth Once per day. 30 tablet 2 06/05/2025 Active Active Problems Problem Noted Date Diagnosed Date Exposure to communicable disease 06/05/2025 Assessment & Plan (06/05/2025 3:42 PM EDT): Orders: HIV-1/2 Antigen and Antibodies, Fourth Generation, with Reflexes; Future Hepatitis C Antibody with Reflex to HCV, RNA, Quantitative, Real-Time PCR; Future Chlamydia/N. Gonorrhoeae, PCR, Urine Other fatigue 06/05/2025 Assessment & Plan (06/05/2025 3:42 PM EDT): Orders: TSH; Future Morbid obesity (CMS/HCC) 06/05/2025 Assessment & Plan (06/05/2025 3:42 PM EDT): Orders: Comprehensive Metabolic Panel; Future Hemoglobin A1c; Future CBC auto differential; Future Referral to Sleep Medicine; Future TSH; Future Apnea 06/05/2025 Assessment & Plan (06/05/2025 3:42 PM EDT): Orders: Referral to Sleep Medicine; Future Primary hypertension 06/05/2025 Assessment & Plan (06/05/2025 3:42 PM EDT): Asthma 06/05/2025 Assessment & Plan (06/05/2025 3:42 PM EDT): Encounters Date Type Department Care Team Description 06/05/2025 2:45 PM EDT Office Visit [facility] [address] [place] [phone] Leidy Acuña NP Exposure to communicable disease (Primary Dx); Other fatigue; Morbid obesity (CMS/HCC) (HCC); Apnea; Primary hypertension; Mild intermittent asthma, unspecified whether complicated 06/05/2025 Travel 06/01/[address] [facility] [address] [place] [address] Vu Manning NP Chart Prep 05/26/[address] [facility] [address] [place], [place] [phone] Vu Manning NP Pre-visit Planning (SDOH negative. Tobacco screening negative. ) 05/26/2025 Travel 05/24/[address] [facility] [address] [place] [address] Alex Foster MD Appointment Request from Last 3 Months Social History Tobacco Use Types Packs/Day Years [...] Orientation Straight 06/02/2025 1: 29 PM EDT Last Filed Vital Signs Vital Sign Reading [...] Mass Index 54.7 06/05/2025 3:07 PM EDT Plan of Treatment Upcoming Encounters Date Type Department Care Team (Late st Contact Info) Description 06/20/2025 11:30 AM EDT Clinical Support [facility] [address] [place] [phone] 07/28/2025 11:15 AM EST Office Visit [facility] [address] [place] [phone] Leidy Acuña, MARK [address] [place] [address] Health Maintenance Due Date Last Done Comments Depression Screening 1999 HIV Screening 1999 Alcohol/Substance Use Screening 2011 Tobacco Screening 2011 Family Planning (PISQ) 2014 HPV Vaccines (1 - Male 3-dos e series) 2014 Hepatitis C Screening 2017 DTaP/Tdap/Td Vaccines (1 - Tdap) 2018 Hepatitis B Vaccines (1 of 3 - 19+ 3-dose series) 2018 Pneumococcal Vaccine: Pediat rics (0 to 5 Years) and At-Risk Patients (6 to 49) Years (1 of 2 - PCV) 2018 COVID-19 Vaccine (1 - 2023-2 5 season) 2025 Influenza Vaccine (#1) 2025 Disability Screening 05/26/2026 05/26/2025 SDOH Screening 05/26/2026 05/26/2025 Zoster Vaccines (1 of 2) 2049 RSV Patients and Pa tients Aged 60 years or older (1 - 1-dose 75+ series) 2074 HIB Vaccines Aged Out No longer eligi ble based on patient's age to complete this topic Hepatitis A Vaccines Aged Out No long er eligible based on patient's age to complete this topic IPV Vaccines Aged Out No longer eligi ble based on patient's age to complete this topic Meningococcal B Vaccine Aged Out No l onger eligible based on patient's age to complete this topic Meningococcal Vaccine Aged Out No randal kaden eligible based on patient's age to complete this topic RSV under 20 months Aged Out No longe r eligible based on patient's age to complete this topic Rotavirus Vaccines Aged Out No longer eligible based on patient's age to complete this topic Insurance [facility] C3 Care Teams Homicide Detective Relationship Specialty Start Date End Date Leidy Acuña NP [address] [place] [phone] PCP - General Family Medicine 06/05/25
--- OUTSIDE RECORDS SUMMARY | 2025-06-05 15:52 | XMS_ITS | Encounter Summary ---
Author Organization [id number] Address [address] [facility] 7 [place] [address] Care Team Providers Care Manager Research And Development Name Role Phone Unavailable Primary Care Provider Unavailabl e Reason for Visit * Reason Onset Date Comments Chart Prep 06/01/2025 Encounter Details Date Type Department Care Team ([facility] st Contact Info) Description 06/01/2025 Telephone [facility] [address] [place] [phone] Vu Manning NP [address] [place] [address] Chart Prep Social History Tobacco Use Types Packs/Day Years [...] PM EDT documented as of this encounter Miscellaneous Notes * Telephone Encounter - Kendy Leslie MA - 06/01/2025 11:51 AM EDT Chart Prep Labs: not applicable Images: not applicable Referrals: not applicable Vaccines due: Covid, Flu, PCV20, Tdap, Hep B, and HPV Screenings: Hep C, HIV. Overdue care gaps: SBIRT, PHQ-9, LUANA-7, and Tobacco documented in this encounter Plan of Treatment Upcoming Encounters Date Type Department Care Team (Late st Contact Info) Description 06/20/2025 11:30 AM EDT Clinical Support [facility] [address] [place] [phone] 07/28/2025 11:15 AM EST Office Visit [facility] [address] [place] [phone] Leidy Acuña NP [address] [place] [address] documented as of this encounter Visit Diagnoses Not on filedocumented in this encounter
[2025-06-05 17:29] LABS: MANUAL DIFF FLAG NO
[2025-06-05 17:35] LABS: Hematocrit 48.1 % (42.0-52.0); Hemoglobin 16.0 g/dl (14.0-18.0); Imm Gran Abs Auto 0.01 X10*3/uL (0.00-0.03); Imm Gran Pct Auto 0.2 % (0.0-0.4); Lymphocytes Absolute Auto 2.1 X10*3/uL (1.2-4.9); Mean Corpuscular HGB Conc 33.3 g/dl (31.0-36.0); Mean Corpuscular Hemoglobin 30.0 pg (27.0-33.0); Mean Corpuscular Volume 90.2 fL (80.0-98.0); NRBC Abs Auto 0.000 X10*3/uL (0.0-0.012); NRBC Pct Auto 0.0 /100WBC (0.0-0.2); Platelet Count 266 X10*3/uL (160-400); Red Blood Count 5.33 X10*6/uL (4.60-5.80); White Blood Count 5.1 X10*3/uL (4.8-10.8)
[2025-06-05 18:06] LABS: Alanine Aminotransferase 128 U/L (0-40); Albumin Level 4.9 g/dL (3.5-5.0); Alkaline Phosphatase 78 U/L (39-117); Anion Gap 15 (12-20); Aspartate Amino Transferase 81 U/L (5-37); Blood Urea Nitrogen 8 mg/dL (9-16); Calcium 9.8 mg/dL (8.4-10.2); Carbon Dioxide 25 mmol/L (22-29); Chloride 105 mmol/L (96-108); Estimated Glomerular Filt Rate > 60; Potassium 3.9 mmol/L (3.3-5.1); Sodium 141 mmol/L (135-145); Total Protein 8.1 g/dL (6.5-8.0)
[2025-06-05 18:24] LABS: Thyroid Stimulating Hormone 1.71 uIU/mL (0.32-4.0)
[2025-06-06 04:43] LABS: HIV Num 1 0.05 S/CO (0.00-0.99); ~HepC Num1 0.17 S/CO (0.00-0.79); ~Hepatitis C Antibody Nonreactive (Nonreactive)
== END 2025-06-05 15:49 | disposition home or self-care (01) ==
LOC: HO.HHCL 15:48
PROVIDERS: PCP Nurse Practitioner Family; Visit Provider Nurse Practitioner Family
DX: E66.01 Morbid (severe) obesity due to excess calories (principal); R53.83 Other fatigue; Z20.9 Contact with and (suspected) exposure to unspecified communicable disease; Z11.4 Encounter for screening for human immunodeficiency virus [HIV]; Z11.59 Encounter for screening for other viral diseases
CPT/HCPCS: 36415; 80053; 83036; 84443; 85025; 86803; 87389